=== PATIENT | male | born 1970 | race American Indian/Alaskan Native ===

== ENCOUNTER 2017-12-10 01:12 | Emergency (ER) | payer OTHER ==
[2017-12-10] MEDS ORDERED: TORADOL IM ONE (11:02)
[2017-12-10] MEDS ORDERED: TORADOL ONE (11:04)
--- NOTE | 2017-12-10 11:22 | Emergency Department Report ---
ED Lower Extremity HPI - General Chief Complaint: Extremity Injury, Lower Stated Complaint: BILATERAL LEG PAIN Time Seen by Provider: 12/10/17 09:01 Source: patient Mode of arrival: Wheelchair Limitations: No Limitations - History of Present Illness -: Gradual (started yesterday, left leg pain started in the calf feels like burning and radiates to inside of the thigh. Also right leg pain that feels like achiness.) Injury: Leg: Right, Left Type of Injury: other (No injury but he had cardiac stent place a week ago and was discharged yesterday. ) Severity: moderate Improves With: rest Worsens With: nothing - Related Data Previous Rx's Medication Instructions Recorded Last Taken Type Apixaban [Eliquis] 5 mg PO BID #30 tablet 12/10/17 Unknown Rx Allergies Allergy/AdvReac Type Severity Reaction Status Date / Time No Known Allergies Allergy Unverified 12/10/17 01:27 ED Review of Systems ROS: Stated complaint: BILATERAL LEG PAIN Other details as noted in HPI Constitutional: denies: chills, fever Eyes: denies: eye pain, eye discharge, vision change ENT: denies: ear pain, throat pain Respiratory: denies: cough, shortness of breath, wheezing Cardiovascular: denies: chest pain, palpitations Endocrine: no symptoms reported Gastrointestinal: denies: abdominal pain, nausea, diarrhea Genitourinary: denies: urgency, dysuria Musculoskeletal: denies: back pain, joint swelling, arthralgia Skin: denies: rash, lesions Neurological: denies: headache, weakness, paresthesias Psychiatric: denies: anxiety, depression Hematological/Lymphatic: denies: easy bleeding, easy bruising ED Past Medical Hx - Past Medical History Previous Medical History?: Yes Hx Hypertension: Yes Hx Diabetes: Yes - Surgical History Past Surgical History?: Yes Additional Surgical History: cardiac stents - Social History Smoking Status: Never Smoker Substance Use Type: None - Medications Home Medications: Home Medications Medication Instructions Recorded Confirmed Last Taken Type Apixaban [Eliquis] 5 mg PO BID #30 tablet 12/10/17 Unknown Rx ED Physical Exam - General Limitations: No Limitations General appearance: alert, in no apparent distress - Head Head exam: Present: atraumatic, normocephalic - Eye Eye exam: Present: normal appearance - ENT ENT exam: Present: mucous membranes moist - Neck Neck exam: Present: normal inspection - Respiratory Respiratory exam: Present: normal lung sounds bilaterally. Absent: respiratory distress - Cardiovascular Cardiovascular Exam: Present: regular rate, normal rhythm. Absent: systolic murmur, diastolic murmur, rubs, gallop - GI/Abdominal GI/Abdominal exam: Present: soft, normal bowel sounds - Rectal Rectal exam: Present: deferred - Extremities Exam Extremities exam: Present: normal inspection - Back Exam Back exam: Present: normal inspection - Neurological Exam Neurological exam: Present: alert, oriented X3 - Psychiatric Psychiatric exam: Present: normal affect, normal mood - Skin Skin exam: Present: warm, dry, intact, normal color. Absent: rash ED Course Vital Signs 12/10/17 12/10/17 12/10/17 01:20 01:24 07:42 Temperature 98.4 F 98.4 F Pulse Rate 86 85 87 Respiratory 18 Rate Blood Pressure 136/83 136/83 129/84 O2 Sat by Pulse 96 17 L 96 Oximetry 12/10/17 11:08 Temperature Pulse Rate Respiratory 18 Rate Blood Pressure O2 Sat by Pulse Oximetry ED Lower Extremity MDM - Lab Data Result diagrams: 12/10/17 11:07 12/10/17 11:07 Critical care attestation.: If time is entered above; I have spent that time in minutes in the direct care of this critically ill patient, excluding procedure time. ED Disposition Clinical Impression: Superficial thrombophlebitis of right leg Disposition: DC-01 TO HOME OR SELFCARE Is pt being admited?: No Does the pt Need Aspirin: No Condition: Stable Instructions: Venous Thromboembolism (ED) Prescriptions: Apixaban [Eliquis] 5 mg PO BID #30 tablet Referrals: PRIMARY CARE, [Primary Care Provider] - 3-5 Days Time of Disposition: 14:05
[2017-12-10 11:23] LABS: Hematocrit 35.1 % (35.5-45.6); Hemoglobin 11.4 gm/dl (11.8-15.2); Mean Corpuscular HGB Conc 33 % (32-34); Mean Corpuscular Volume 78 fl (84-94); Platelet Count 301 K/mm3 (140-440); Red Blood Count 4.51 M/mm3 (3.65-5.03); Red Cell Distribution Width 13.9 % (13.2-15.2)
[2017-12-10 11:34] LABS: Mean Corpuscular Hemoglobin 25 pg (28-32)
[2017-12-10 11:43] LABS: BUN/Creatinine Ratio 21; Blood Urea Nitrogen 21 mg/dL (9-20); Calcium 9.1 mg/dL (8.4-10.2); Hemolysis Index 0
[2017-12-10] MEDS ORDERED: K-DUR PO ONE ×2 (14:22→14:56)
[2017-12-10] MEDS ORDERED: ELIQUIS PO ONE (15:00)
[2017-12-10 15:06] VITALS: BP 132/86
== END 2017-12-10 15:04 | disposition home or self-care (01) ==
LOC: ED 01:12
DX: I80.01 Phlebitis and thrombophlebitis of superficial vessels of right lower extremity (principal); I10 Essential (primary) hypertension; E11.9 Type 2 diabetes mellitus without complications
CPT/HCPCS: 36415; 80048; 82962; 85027; 85379; 93970; 96372; 99283; J1885

== ENCOUNTER 2019-02-04 20:25 | Emergency (ER) | payer OTHER ==
--- NOTE | 2019-02-04 21:16 | Emergency Department Report ---
Chief Complaint: Pain General Stated Complaint: HIGH BLOOD PRESSURE Time Seen by Provider: 02/04/19 21:10 - HPI History of Present Illness: This is a 48 y.o. male that presents with bilateral calf pain that is worse on the left side. Patient is in custody of [facility] with officers at side. He reports a history of DVT. He also complains of left shoulder pain. Patient states he was taken off eliquis by the [facility] month ago. He is concerned of possible DVT. Denies sob, chest pain, edema PMH: HTN & CAD - Exam Vital Signs: Vital Signs 02/04/19 21:19 Temperature 98 F Pulse Rate 76 Respiratory 16 Rate Blood Pressure 143/91 [Left] O2 Sat by Pulse 98 Oximetry MSE screening note: Focused history and physical exam performed. Due to findings the following was ordered: labs ED Disposition for MSE Condition: Stable
[2019-02-04 21:20] VITALS: BP 143/91
[2019-02-04 22:11] LABS: Hematocrit 40.4 % (35.5-45.6); Mean Corpuscular HGB Conc 32 % (32-34); Mean Corpuscular Volume 74 fl (84-94); Platelet Count 248 K/mm3 (140-440); Red Blood Count 5.45 M/mm3 (3.65-5.03); Red Cell Distribution Width 15.8 % (13.2-15.2)
[2019-02-04 22:19] LABS: Mean Corpuscular Hemoglobin 24 pg (28-32)
[2019-02-04 22:29] LABS: BUN/Creatinine Ratio 15; Blood Urea Nitrogen 17 mg/dL (9-20); Calcium 9.7 mg/dL (8.4-10.2); Hemolysis Index 0
--- NOTE | 2019-02-05 03:40 | XRay Report ---
PROCEDURE: XR CHEST ROUTINE 2V TECHNIQUE: PA and lateral views of the chest were submitted. HISTORY: Chest Pain COMPARISONS: None FINDINGS: The heart size and vascularity appear normal. The lungs are clear. Pleural fluid is not seen. The ske letal structures do not show any acute changes. IMPRESSION: No acute cardiopulmonary process.. This document is electronically signed by Saturnino Hammond MD., February 05 2019 03:39:09 AM ET
[2019-02-05 03:57] LABS: Lipase 32 units/L (13-60)
--- NOTE | 2019-02-05 07:28 | Emergency Department Report ---
ED General Adult HPI - General Chief complaint: Pain General Stated complaint: HIGH BLOOD PRESSURE Time Seen by Provider: 02/04/19 21:10 Source: patient Mode of arrival: Wheelchair Limitations: No Limitations - History of Present Illness Initial comments: Patient presents to emergency Department chief complaint chest pain for the last 2 days. Patient has a history of hypertension and a DVT. Patient describes the pain as dull in nature without radiation. Patient denies shortness of breath, headache, abdominal pain. -: Sudden Location: chest Severity scale (0 -10): 0 Quality: dull Consistency: constant Improves with: none Worsens with: none Associated Symptoms: denies other symptoms Treatments Prior to Arrival: none - Related Data Previous Rx's Medication Instructions Recorded Last Taken Type Apixaban [Eliquis] 5 mg PO BID #30 tablet 12/10/17 Unknown Rx Allergies Allergy/AdvReac Type Severity Reaction Status Date / Time No Known Allergies Allergy Unverified 12/10/17 01:27 ED Review of Systems ROS: Stated complaint: HIGH BLOOD PRESSURE Other details as noted in HPI Comment: All other systems reviewed and negative Constitutional: denies: chills, fever Eyes: denies: eye pain, eye discharge, vision change ENT: denies: ear pain, throat pain Respiratory: denies: cough, shortness of breath, wheezing Cardiovascular: chest pain. denies: palpitations Endocrine: no symptoms reported Gastrointestinal: denies: abdominal pain, nausea, diarrhea Genitourinary: denies: urgency, dysuria Musculoskeletal: denies: back pain, joint swelling, arthralgia Skin: denies: rash, lesions Neurological: denies: headache, weakness, paresthesias Psychiatric: denies: anxiety, depression Hematological/Lymphatic: denies: easy bleeding, easy bruising ED Past Medical Hx - Past Medical History Hx Hypertension: Yes Hx Diabetes: Yes - Surgical History Additional Surgical History: cardiac stents - Social History Smoking Status: Never Smoker Substance Use Type: None - Medications Home Medications: Home Medications Medication Instructions Recorded Confirmed Last Taken Type Apixaban [Eliquis] 5 mg PO BID #30 tablet 12/10/17 Unknown Rx ED Physical Exam - General Limitations: No Limitations General appearance: alert, in no apparent distress - Head Head exam: Present: atraumatic, normocephalic - Eye Eye exam: Present: normal appearance, PERRL, EOMI - ENT ENT exam: Present: mucous membranes moist - Neck Neck exam: Present: normal inspection - Respiratory Respiratory exam: Present: normal lung sounds bilaterally. Absent: respiratory distress, wheezes, rales - Cardiovascular Cardiovascular Exam: Present: regular rate, normal rhythm. Absent: systolic murmur, diastolic murmur, rubs, gallop - GI/Abdominal GI/Abdominal exam: Present: soft, normal bowel sounds. Absent: distended, tenderness - Rectal Rectal exam: Present: deferred - Extremities Exam Extremities exam: Present: normal inspection - Back Exam Back exam: Present: normal inspection - Neurological Exam Neurological exam: Present: alert, oriented X3, CN II-XII intact. Absent: motor sensory deficit - Psychiatric Psychiatric exam: Present: normal affect, normal mood - Skin Skin exam: Present: warm, dry, intact, normal color. Absent: rash ED Course Vital Signs 02/04/19 21:19 Temperature 98 F Pulse Rate 76 Respiratory 16 Rate Blood Pressure 143/91 [Left] O2 Sat by Pulse 98 Oximetry ED Medical Decision Making - Lab Data Result diagrams: 02/04/19 21:52 02/04/19 21:52 Lab Results 02/04/19 02/04/19 02/04/19 Range/Units 21:52 21:52 21:52 WBC 6.5 (4.5-11.0) K/mm3 RBC 5.45 H (3.65-5.03) M/mm3 Hgb 13.0 (11.8-15.2) gm/dl Hct 40.4 (35.5-45.6) % MCV 74 L (84-94) fl MCH 24 L (28-32) pg MCHC 32 (32-34) % RDW 15.8 H (13.2-15.2) % Plt Count 248 (140-440) K/mm3 D-Dimer 291.49 H (0-234) ng/mlDDU Sodium 139 (137-145) mmol/L Potassium 4.1 (3.6-5.0) mmol/L Chloride 96.6 L (98-107) mmol/L Carbon Dioxide 31 H (22-30) mmol/L Anion Gap 16 mmol/L BUN 17 (9-20) mg/dL Creatinine 1.1 (0.8-1.5) mg/dL Estimated GFR > 60 ml/min BUN/Creatinine Ratio 15 % Glucose 178 H (75-100) mg/dL Calcium 9.7 (8.4-10.2) mg/dL Troponin T (0.00-0.029) ng/mL Lipase (13-60) units/L 02/05/19 02/05/19 Range/Units 02:46 06:45 WBC (4.5-11.0) K/mm3 RBC (3.65-5.03) M/mm3 Hgb (11.8-15.2) gm/dl Hct (35.5-45.6) % MCV (84-94) fl MCH (28-32) pg MCHC (32-34) % RDW (13.2-15.2) % Plt Count (140-440) K/mm3 D-Dimer (0-234) ng/mlDDU Sodium (137-145) mmol/L Potassium (3.6-5.0) mmol/L Chloride (98-107) mmol/L Carbon Dioxide (22-30) mmol/L Anion Gap mmol/L BUN (9-20) mg/dL Creatinine (0.8-1.5) mg/dL Estimated GFR ml/min BUN/Creatinine Ratio % Glucose (75-100) mg/dL Calcium (8.4-10.2) mg/dL Troponin T < 0.010 < 0.010 (0.00-0.029) ng/mL Lipase 32 (13-60) units/L - EKG Data -: EKG Interpreted by Me EKG shows normal: sinus rhythm Rate: normal - Radiology Data Radiology results: report reviewed Critical care attestation.: If time is entered above; I have spent that time in minutes in the direct care of this critically ill patient, excluding procedure time. ED Disposition Clinical Impression: Nonspecific chest pain Disposition: DC-01 TO HOME OR SELFCARE Is pt being admited?: No Does the pt Need Aspirin: No Condition: Stable Instructions: Chest Pain (ED), Noncardiac Chest Pain (ED) Referrals: TENISHA SOLIS MD [Primary Care Provider] - 3-5 Days Time of Disposition: 09:07
--- NOTE | 2019-02-05 08:56 | Cat Scan Report ---
PROCEDURE: CT ANGIO CHEST TECHNIQUE: CT imaging is obtained through the chest in pulmonary angiographic the intravenous admini stration of contrast. Transaxial, coronal and sagittal reformations are provided with maximal intensi ty projections HISTORY: elevated D dimer COMPARISONS: Chest radiographs of the same date FINDINGS: Normal caliber main pulmonary artery. Adequate opacification of the pulmonary arterial tree. No cent ral or segmental pulmonary embolism. No pericardial effusion. Thoracic aorta is normal in course and caliber. No periaortic fluid or stranding. No pneumothorax, effusion or focal airspace disease. The central airways are patent. No bronchiectasi s. Imaged portion of the upper abdomen is unremarkable. The superficial soft tissues are unremarkable. No acute bony abnormality or worrisome osseous lesions identified. IMPRESSION: No central or segmental pulmonary embolism or other acute finding. This document is electronically signed by Hima Gilmore MD., February 05 2019 08:54:50 AM ET
== END 2019-02-05 09:54 | disposition home or self-care (01) ==
LOC: EEVIPCON 20:25 → ED 20:25
DX: R07.89 Other chest pain (principal); I10 Essential (primary) hypertension; E11.9 Type 2 diabetes mellitus without complications; Z95.5 Presence of coronary angioplasty implant and graft
CPT/HCPCS: 36415; 71046; 71275; 80048; 83690; 84484; 85027; 85379; 93005; 93010; 99284; Q9967